=== PATIENT | male | born 1970 | race Caucasian/White ===

== ENCOUNTER 2018-12-21 07:37 | Outpatient (CLI) | payer BC ==
--- NOTE | 2018-12-21 09:29 | MRI ---
MR the lumbar spine without contrast INDICATION: Low back pain with lower extremity radiculopathy COMPARISON: None. TECHNIQUE: Multiplanar multisequence MR images were obtained of lumbar spine without IV contrast. FINDINGS: Bone marrow: Bone marrow signal intensity appears within normal limits. Distal spinal cord and conus: Normal. The conus seen to terminate at T12-L1. Visualized retroperitoneum and paraspinal soft tissues: Normal appearing Vertebral levels: L5-S1: There are bilateral pars defects at L5. There is grade 1 anterolisthesis. There is a broad-bas ed pseudobulge with loss of disc space height in addition to the anterolisthesis inducing mild bilateral neural foraminal narrowing.. L4-5: There is a broad-based bulge with facet hypertrophy inducing mild right and moderate left neura l foraminal narrowing. L3-4: There is a broad-based bulge with facet hypertrophy inducing mild bilateral neural foraminal na rrowing. L2-3: No appreciable central canal or neuroforaminal narrowing. L1-L2: No appreciable central canal or neuroforaminal narrowing. T12-L1: No appreciable central canal or neuroforaminal narrowing. There is a small central disc protrusion at T11-T12. IMPRESSION: 1. Bilateral pars defects at L5 with grade 1 anterolisthesis. There is mild bilateral neural foramina l narrowing. 2. Moderate left and mild right neural foraminal narrowing at L4-5. 3. Mild bilateral neural foraminal narrowing at L3-4. 4. Small central disc protrusion at T11-T12.
== END 2018-12-21 07:38 | disposition home or self-care (01) ==
LOC: TBSIIMAG 07:37
PROVIDERS: ATTEND Neurological Surgery
DX: M54.16 Radiculopathy, lumbar region (principal); M43.16 Spondylolisthesis, lumbar region; M48.061 Spinal stenosis, lumbar region without neurogenic claudication; M51.24 Other intervertebral disc displacement, thoracic region
CPT/HCPCS: 72148